=== PATIENT | male | born 1960 | race Caucasian/White ===

== ENCOUNTER → 2017-07-18 | Outpatient (CLI) | payer MEDICARE | LOC: BFHH 17:10 | PROVIDERS: ATTEND Family Medicine | DX: L89.310 Pressure ulcer of right buttock, unstageable (principal); I10 Essential (primary) hypertension ==

== ENCOUNTER → 2017-09-06 | Outpatient (CLI) | payer MEDICARE | LOC: BFHH 15:31 | PROVIDERS: ATTEND Family Medicine | DX: S31.819D Unspecified open wound of right buttock, subsequent encounter (principal); L08.9 Local infection of the skin and subcutaneous tissue, unspecified ==

== ENCOUNTER 2019-09-03 05:45 | Day surgery (SDC) | payer MEDICARE ==
[2019-09-03] MEDS ORDERED: TROP 1%/CYCLOPEN 1%/PHENYL 2% DROPS ONE (06:35)
[2019-09-03] MEDS ORDERED: MOXIFLOXACIN HCL (OPHTH) 1 DROP DROPS ONE (06:35)
[2019-09-03] MEDS ORDERED: PROPARACAINE 0.5% OPHTH SOL 15 ML BTTL ONE (06:35)
[2019-09-03] MEDS ORDERED: PROPARACAINE 0.5% OPHTH SOL 15 ML BTTL LEFT_EYE ONE (12:02)
[2019-09-03] MEDS ORDERED: LIDOCAINE 1% 2 ML VIAL INJ ONE (12:02)
[2019-09-03] MEDS ORDERED: MIDAZOLAM INJ 2 MG/2 ML VIAL ONE (12:04)
[2019-09-03] MEDS ORDERED: fentaNYL CITRATE INJ 50 MCG/ML AMP ONE (12:04)
[2019-09-03] MEDS ORDERED: DEXAMETHASONE 0.1% OPHTH SOL 1 DROP LEFT_EYE ONE (12:20)
[2019-09-03] MEDS ORDERED: TOBRAMYCIN SULF 0.3 % OPHT SOL 1 DROP LEFT_EYE ONE (12:20)
[2019-09-03] MEDS ORDERED: MOXIFLOXACIN HCL (OPHTH) 1 DROP DROPS LEFT_EYE ONE (12:20)
[2019-09-03] MEDS ORDERED: BRIMONIDINE 0.2% OPHTH DROPS LEFT_EYE ONE (12:21)
== END 2019-09-03 13:25 | disposition home or self-care (01) ==
LOC: AMB 05:45
PROVIDERS: ATTEND Ophthalmology
DX: H25.12 Age-related nuclear cataract, left eye (principal); I10 Essential (primary) hypertension; Z88.8 Allergy status to other drugs, medicaments and biological substances; Z79.899 Other long term (current) drug therapy
CPT/HCPCS: 00142; 66984; J2250; J3010

== ENCOUNTER 2019-09-05 13:48 | Emergency (ER) | payer MEDICARE ==
[2019-09-05] MEDS ORDERED: DEXAMETHASONE 4 MG TAB PO ONE (14:45)
--- NOTE | 2019-09-05 14:57 | ED.PDOC ---
History of Present Illness - General Chief Complaint: General Stated Complaint: right sided facial numbness Time Seen by Provider: 09/05/19 14:45 - History of Present Illness Initial Comments: 58-year-old male with history of cervical spine injury, now paraplegia, is status post cataract surgery on the left eye on Tuesday, presents to the emergency department with several hours of right cheek numbness that extends along the mandible. He denies any chest pain, extremity weakness, facial weakness, changes in vision. No similar prior symptoms. Does not recall any trauma to the area. The inside of the cheek does feel numb as well. He is able to use his upper extremities with limited activity, does not feel his strength in his arms is changed. Allergies/Adverse Reactions: Allergies Iodine Allergy (Verified 09/05/19 14:54) Home Medications: Ambulatory Orders Baclofen 10 mg PO PRN 01/13/16 Midodrine HCl 5 mg PO PRN 01/13/16 Oxybutynin Chloride [Ditropan Xl] 25 mg PO DAILY 01/13/16 Sulfa/Trimeth 800/160 (Ds) Tab [Bactrim DS Tab] 1 ea PO DAILY 01/13/16 Venlafaxine HCl [Venlafaxine HCl ER] 225 mg PO DAILY 01/13/16 Gabapentin 400 mg PO TID 09/03/19 Review of Systems - Review of Systems Review of Systems: 09/05/19 14:57 General: Denies generalized weakness, fever, arthralgia/myalgia HEENT: Denies sore throat, rhinorrhea Cardiovascular: Denies chest pain, palpitations Respiratory: Denies SOB, cough Gastrointestinal: Denies abdominal pain, vomiting, diarrhea : Denies dysuria, frequency Musculoskeletal: Denies extremity pain, extremity swelling Integument: Denies rash, itching Neuro: Denies new focal weakness, does have numbness in cheek Psych: Denies depression, hallucinations. Past Medical History (General) - Vaccination History Hx Influenza Vaccination: Yes Hx Pneumococcal Vaccination: Yes - Social History Hx Tobacco Use: Yes Family Medical History - Family History Father Family History: Unknown Living Status: Unknown Physical Exam - Physical Exam Comments: General Appearance: Patient is awake and alert. in wheel chair. Skin: Warm and dry. No diaphoresis. No rash or other lesions. Head: Normocephalic/atraumatic. Eyes: PERRL, lids, conjunctiva and sclera unremarkable. EOMI intact. ENT: No nasal discharge. Oropharynx. Without erythema, exudate, lesions. tongue midline, no swelling of parotid gland, skin appears normal on R side. Moist mucous membranes. external canal and TM normal. hearing intact. Neck: Supple. No LAD. No tenderness. No JVD noted. Respiratory: Normal rate and effort. Breath sounds clear bilaterally. Cardiovascular: Regular rate. Heart sounds normal. No murmur. GI: Abdomen soft, non-distended and non-tender. No rebound/guarding. Bowel sounds normal. Back: No tenderness Musculoskeletal: Extremities- Normal range of motion. No effusion, cyanosis, edema. Neurological: Alert. No facial palsy. Speech clear. Gag intact. has baseline mtr deficits, bilat UE w/ spastic movement, unchanged. LE plegia. subj numbnss to R cheek. Progress - Progress Progress: 09/05/19 15:00 VS, exam remain reassuring. I have discussed findings w patient and , broad diff dx, plan of care, need for follow-up, and reasons to return to the ED. Safety Stop (Diagnostic Time-Out): Tachycardia: No Diagnostic Studies: n/a Diagnostic Certainty: low Patient/family feels safe with discharge: Yes Departure - Departure Clinical Impression: Facial paresthesia Time of Disposition: 15:01 Disposition: Discharge to Home or Self Care Condition: Good Departure Forms: ED Discharge - Pt. Copy, Patient Portal Self Enrollment Instructions: Paresthesias (DC) Diet: resume usual diet Referrals: Sabino Valera MD [Primary Care Provider] - 1-5 Days Home Medications: Ambulatory Orders Baclofen 10 mg PO PRN 01/13/16 Midodrine HCl 5 mg PO PRN 01/13/16 Oxybutynin Chloride [Ditropan Xl] 25 mg PO DAILY 01/13/16 Sulfa/Trimeth 800/160 (Ds) Tab [Bactrim DS Tab] 1 ea PO DAILY 01/13/16 Venlafaxine HCl [Venlafaxine HCl ER] 225 mg PO DAILY 01/13/16 Gabapentin 400 mg PO TID 09/03/19 Comments: Noe Peraza MD Emergency Medicine #[id number]
[2019-09-05 15:27] VITALS: BP 119/87; TEMP 96; O2SAT 99
== END 2019-09-05 15:17 | disposition home or self-care (01) ==
LOC: ER 13:48
DX: R20.2 Paresthesia of skin (principal); G82.20 Paraplegia, unspecified; Z98.890 Other specified postprocedural states; Z91.041 Radiographic dye allergy status; Z79.899 Other long term (current) drug therapy; Z87.891 Personal history of nicotine dependence

== ENCOUNTER → 2019-09-19 | Outpatient (CLI) | payer MEDICARE | LOC: NM 09:09 | PROVIDERS: ATTEND Family Medicine | DX: R07.2 Precordial pain (principal) ==